=== PATIENT | female | born 1975 ===

== ENCOUNTER 2022-08-03 23:21 | Emergency (ER) | payer BC, OTHER ==
[2022-08-04] MEDS ORDERED: Ketorolac 30 MG/ML SDV IVPUSH ONE (00:23)
[2022-08-04] MEDS ORDERED: Ciprofloxacin 500 MG Tab PO ONE (00:23)
[2022-08-04] MEDS ORDERED: Dexamethasone 4 MG/ML SDV IVPUSH ONE (00:23)
[2022-08-04] MEDS ORDERED: Orphenadrine 60 MG/2 ML Inj IM ONE (00:23)
[2022-08-04] MEDS ORDERED: Sodium Chloride 0.9% 10 ML Syringe FLUSH PRN (00:23)
== END 2022-08-04 01:59 | disposition home or self-care (01) ==
LOC: DL.ED 23:21
DX: N39.0 Urinary tract infection, site not specified (principal); G89.29 Other chronic pain; M54.50 Low back pain, unspecified; F17.210 Nicotine dependence, cigarettes, uncomplicated; Z90.49 Acquired absence of other specified parts of digestive tract
CPT/HCPCS: 81001; 96372; 96374; 96375; 99283; A9270; J1100; J1885; J2360; J3490